=== PATIENT | female | born 1950 | race Caucasian/White ===

== ENCOUNTER → 2017-01-04 | Outpatient (CLI) | payer MEDICARE ==
[~2017-01-04] MED LIST: THYR48.7 PO
== END | disposition home or self-care (01) ==
LOC: CFH 08:20
PROVIDERS: ATTEND Nurse Practitioner Family
DX: K74.60 Unspecified cirrhosis of liver (principal); R16.1 Splenomegaly, not elsewhere classified; B18.2 Chronic viral hepatitis C; Z90.49 Acquired absence of other specified parts of digestive tract
CPT/HCPCS: 76700

== ENCOUNTER → 2017-08-08 | Outpatient (CLI) | payer MEDICARE | LOC: CFH 07:26 | PROVIDERS: ATTEND Internal Medicine Gastroenterology | DX: B18.2 Chronic viral hepatitis C (principal); K76.9 Liver disease, unspecified; R16.1 Splenomegaly, not elsewhere classified; Z90.49 Acquired absence of other specified parts of digestive tract | CPT/HCPCS: 76700 ==

== ENCOUNTER 2018-05-03 16:49 | Emergency (ER) | payer MEDICARE ==
[~2018-05-03] VITALS: Ht 172.7 cm; Wt 90.0 kg
[2018-05-03] MEDS ORDERED: CALC0.25 PO (17:29)
[2018-05-03] MEDS ORDERED: LIOT5TAB10 PO (17:29)
[2018-05-03 17:42] LABS: BASOPHILS # (AUTO) 0.01 x10^3/uL (0-0.1); BASOPHILS % (AUTO) 0 % (0-1); EOSINOPHILS # (AUTO) 0.04 x10^3/uL (0-0.4); EOSINOPHILS % (AUTO) 1 % (1-7); LYMPHOCYTES # (AUTO) 1.31 x10^3/uL (1-3.4); LYMPHOCYTES % (AUTO) 29 % (22-44); MD NO; MEAN CORPUSCULAR HEMOGLOBIN 29.7 pg (27.0-34.8); MEAN CORPUSCULAR HGB CONC 34.2 g/dL (32.4-35.8); MEAN PLATELET VOLUME 8.9 fL (7.4-10.4); MONOCYTES % (AUTO) 5 % (2-9); NEUTROPHILS # (AUTO) 2.98 x10^3/uL (1.8-6.8); NEUTROPHILS % (AUTO) 66 % (42-75); PLATELET COUNT 121 x10^3/uL (130-400); RED BLOOD COUNT 4.73 x10^6/uL (3.82-5.3); RED CELL DISTRIBUTION WIDTH 15.3 % (9.6-15.2)
[2018-05-03 17:46] LABS: ALBUMIN 4.3 g/dL (3.4-5.0); ANION GAP 6 mmol/L (5-15); CALCIUM 9.2 mg/dL (8.5-10.1); CHLORIDE 112 mmol/L (98-107)
[2018-05-03 17:48] LABS: MICROSCOPIC NOT IND
[2018-05-03 17:55] LABS: CULTURE INDICATED? NO
[2018-05-03] MEDS ORDERED: ONDANSETRON 2MG/ML, 2ML IVPush ONE (18:00)
[2018-05-03] MEDS ORDERED: MORPHINE SULFATE 4 MG/ML, 1ML IVPush PRN (18:00)
[2018-05-03] MEDS ORDERED: SODIUM CHLORIDE FLUSH 10ML SYR IVF ONE (18:00)
[2018-05-03 18:02] LABS: ALANINE AMINOTRANSFERASE 28 U/L (12-78); ALKALINE PHOSPHATASE 94 U/L (45-117); BILIRUBIN,TOTAL 0.4 mg/dL (0.2-1.0); TOTAL PROTEIN 8.1 g/dL (6.4-8.2)
[2018-05-03] MEDS ORDERED: ONDANSETRON 2MG/ML, 2ML ONE (18:02)
[2018-05-03] MEDS ORDERED: MORPHINE SULFATE 4 MG/ML, 1ML ONE (18:02)
[2018-05-03] MEDS ORDERED: OMNIPAQUE 350 MG/ML, 100ML BOTTLE ONE (18:40)
[2018-05-03 20:33] VITALS: BP 136/86
== END 2018-05-03 21:34 | disposition home or self-care (01) ==
LOC: ED 17:45
DX: M54.5 Low back pain (principal); R10.9 Unspecified abdominal pain; Z90.89 Acquired absence of other organs; Z90.49 Acquired absence of other specified parts of digestive tract; Z86.39 Personal history of other endocrine, nutritional and metabolic disease
CPT/HCPCS: 36415; 74177; 80053; 81003; 83605; 85025; 93005; 96374; 96375; 99285; J2405; Q9967

== ENCOUNTER → 2018-07-27 | Outpatient (CLI) | payer MEDICARE ==
[~2018-07-27] MED LIST changes: +CALC0.25 PO; +LIOT5TAB10 PO
== END | disposition home or self-care (01) ==
LOC: PETCFH 08:31
PROVIDERS: ATTEND Internal Medicine
DX: R91.1 Solitary pulmonary nodule (principal); K57.30 Diverticulosis of large intestine without perforation or abscess without bleeding
CPT/HCPCS: 78815; A9552

== ENCOUNTER → 2018-08-20 | Outpatient (CLI) | payer MEDICARE | END | disposition home or self-care (01) | LOC: CFH 13:08 | PROVIDERS: ATTEND Internal Medicine | DX: R90.82 White matter disease, unspecified (principal); R41.3 Other amnesia | CPT/HCPCS: 70551 ==

== ENCOUNTER 2018-09-17 20:54 | Emergency (ER) | payer MEDICARE ==
[~2018-09-17] VITALS: Ht 175.3 cm; Wt 88.6 kg
--- NOTE | 2018-09-17 21:14 | NUR ---
PT BIB [facility] FROM HOME IN [facility]. C/O HEADACHES, BALANCE PROBLEMS, DIZZINESS X A COUPLE WEEKS. ALSO C/O N/V WITH 2 EPISODES OF EMESIS TONIGHT. 12-LEAD DONE BY EMS UNREMARKABLE. VS PER EMS: 132/80, HR 70 SR, 100% ON RA, BS 151. PT MEDICATED WITH 8MG ZOFRAN AND 800ML FLUID BOLUS GIVEN. PT ARRIVES TO ED A&OX4, ANXIOUS. AT BEDSIDE. CHART UP FOR ERP.
--- NOTE | 2018-09-17 21:21 | NUR ---
ERP AT BS.
[2018-09-17 21:51] LABS: BASOPHILS # (AUTO) 0.02 x10^3/uL (0-0.1); BASOPHILS % (AUTO) 0 % (0-1); EOSINOPHILS # (AUTO) 0.02 x10^3/uL (0-0.4); EOSINOPHILS % (AUTO) 0 % (1-7); LYMPHOCYTES # (AUTO) 0.61 x10^3/uL (1-3.4); LYMPHOCYTES % (AUTO) 12 % (22-44); MD NO; MEAN CORPUSCULAR HEMOGLOBIN 29.8 pg (27.0-34.8); MEAN CORPUSCULAR HGB CONC 33.9 g/dL (32.4-35.8); MEAN CORPUSCULAR VOLUME 87.8 fL (80-100); MEAN PLATELET VOLUME 8.9 fL (7.4-10.4); MONOCYTES # (AUTO) 0.14 x10^3/uL (0.2-0.8); MONOCYTES % (AUTO) 3 % (2-9); NEUTROPHILS # (AUTO) 4.27 x10^3/uL (1.8-6.8); NEUTROPHILS % (AUTO) 85 % (42-75); PLATELET COUNT 102 x10^3/uL (130-400); RED BLOOD COUNT 4.72 x10^6/uL (3.82-5.3); RED CELL DISTRIBUTION WIDTH 13.8 % (9.6-15.2)
[2018-09-17 22:02] LABS: ALANINE AMINOTRANSFERASE 19 U/L (12-78); ANION GAP 3 mmol/L (5-15); CALCIUM 8.8 mg/dL (8.5-10.1); CHLORIDE 114 mmol/L (98-107); CREATININE 0.93 mg/dL (0.55-1.02)
[2018-09-17 22:12] LABS: ALKALINE PHOSPHATASE 69 U/L (45-117); BILIRUBIN,TOTAL 0.4 mg/dL (0.2-1.0); T4 (THYROXINE) 7.3 mcg/dL (4.8-13.9); TOTAL PROTEIN 6.8 g/dL (6.4-8.2)
--- NOTE | 2018-09-17 22:48 | NUR ---
PT WAS UP TO BR. INSTRUCTED ON CLEAN CATCH URINE SAMPLE. SAMPLE SENT TO LAB.
[2018-09-17 22:58] LABS: MICROSCOPIC NOT IND
[2018-09-17 23:03] LABS: CULTURE INDICATED? NO
[2018-09-17] MEDS ORDERED: KETOROLAC 30 MG/1 ML ONE (23:27)
[2018-09-17] MEDS ORDERED: PROCHLORPERAZINE 5 MG/ML, 2ML ONE (23:27)
[2018-09-17] MEDS ORDERED: DIPHENHYDRAMINE 50 MG/ML, 1ML ONE (23:27)
[2018-09-17] MEDS ORDERED: PLEASE ENTER ALLERGIES MC SCH (23:30)
[2018-09-17] MEDS ORDERED: PROCHLORPERAZINE 5 MG/ML, 2ML IVPush ONE (23:30)
[2018-09-17] MEDS ORDERED: KETOROLAC 30 MG/1 ML IVPush ONE (23:30)
[2018-09-17] MEDS ORDERED: DIPHENHYDRAMINE 50 MG/ML, 1ML IVPush ONE (23:30)
[2018-09-18 00:15] VITALS: BP 136/60
--- NOTE | 2018-09-18 00:23 | NUR ---
D/C INSTRUCTIONS, MEDS, & F/U APPT RV'WD WITH PT, SHE VERBALIZES UNDERSTANDING. RX GIVEN X2. ASSISTED PT OUT OF ED VIA WC WITH .
== END 2018-09-18 00:25 | disposition home or self-care (01) ==
LOC: ED 21:26
DX: G43.009 Migraine without aura, not intractable, without status migrainosus (principal); E07.9 Disorder of thyroid, unspecified; Z87.891 Personal history of nicotine dependence
CPT/HCPCS: 36415; 80053; 81003; 82140; 83690; 84436; 84443; 85025; 96374; 96375; 99283; J0780; J1200; J1885